=== PATIENT | female | born 1960 | race Caucasian/White ===

== ENCOUNTER 2016-09-05 14:58 | Emergency (ER) | payer BC ==
[2016-09-05] MEDS ORDERED: Sodium Chloride 0.9% 10 ML Syringe FLUSH PRN (15:03)
[2016-09-05] MEDS ORDERED: Sodium Chloride 0.9% 500 ML IV ONE (15:51)
--- NOTE | 2016-09-05 16:22 | EDM.PDOC ---
ED HISTORY OF PRESENT ILLNESS - General Chief Complaint: Chest Pain Stated Complaint: [facility] Time Seen by Provider: 09/05/16 15:03 Source of Information: Reports: Patient, EMS, RN notes reviewed - History of Present Illness INITIAL COMMENTS - FREE TEXT/NARRATIVE: 56-year-old female comes in with anterior chest discomfort. This started a couple of hours ago. The pain started upper mid abdomen with some radiation up into the chest. She did become very short of breath. She became weak lightheaded dizzy, felt like she was about to pass out. She also did feel a lot of palpitations and then did start having paresthesias of both hands. She was hyperventilating upon EMS arrival. He did give 1 mg Ativan IV in with that no symptoms are starting to relax somewhat. She still does have some anterior chest discomfort. She still does have some numbness of her hands. She feels less short of breath. She's not been ill recently. No recent cough fever or chills. No known personal cardiac history. - Related Data Allergies/ADRs: Allergies Allergy/AdvReac Type Severity Reaction Status Date / Time No Known Allergies Allergy Verified 09/05/16 15:01 Home Meds: Home Meds Omeprazole [Prilosec] 40 mg PO DAILY 06/14/14 [History] Sucralfate [Carafate] 1 gm PO ACBED #60 tab 06/14/14 [Rx] fluvoxaMINE 75 mg PO DAILY 06/14/14 [History] Past Medical History - Past Health History Medical/Surgical History: Denies Medical/Surgical History Other OB/BYN History: cyst removal Psychiatric History: Reports: Anxiety Social & Family History - Tobacco Use Smoking Status *Q: Never Smoker Second Hand Smoke Exposure: No - Alcohol Use Days Per Week of Alcohol Use: 1 Number of Drinks Per Day: 3 Total Drinks Per Week: 3 - Recreational Drug Use Recreational Drug Use: No ED ROS GENERAL - Review of Systems Review Of Systems: See Below Constitutional: Denies: fever, chills, diaphoresis HEENT: Denies: Sinus problem, Throat pain, Throat swelling Respiratory: Reports: Shortness of Breath. Denies: Wheezing, Pleuritic Chest Pain Cardiovascular: Reports: Chest pain GI/Abdominal: Reports: Abdominal pain (Upper mid abdomen). Denies: Nausea, Vomiting Musculoskeletal: Denies: neck pain, shoulder pain, arm pain Skin: Reports: no symptoms Neurological: Reports: Numbness (Bilateral hands) ED EXAM, GENERAL - Physical Exam Exam: See Below General Appearance: alert, anxious, moderate distress Throat/Mouth: Normal inspection, Normal oropharynx Head: atraumatic. No: facial swelling Neck: supple Respiratory/Chest: lungs clear, normal breath sounds, respiratory distress ( Mild tachypnea). No: rales, rhonchi, wheezing, stridor Cardiovascular: regular rate, rhythm GI/Abdominal: soft, tender (Very mild tenderness upper mid epigastrium). No: guarding, rebound Back Exam: No: CVA tenderness (L), CVA tenderness (R) Extremities: normal inspection, normal range of motion. No: pedal edema, leg pain Neurological: alert, oriented, no motor/sensory deficits Skin Exam: Warm, Dry, Normal color EKG INTERPRETATION EKG Date: 09/05/16 Rhythm: NSR [place]: normal P-wave: present QRS: normal ST-T: normal Course - Vital Signs Last Recorded V/S: Last Vital Signs Temp 97.2 F 09/05/16 15:01 Pulse 78 09/05/16 15:01 Resp 24 H 09/05/16 15:01 BP 93/71 09/05/16 15:01 Pulse Ox 95 09/05/16 15:01 - Orders/Labs/Meds Orders: Active Orders 24 hr Category Date Time Status EKG 12 Lead [EKG Documentation Completion] [RC] STAT Care 09/05/16 15:03 Active Peripheral IV Care [RC] . DIRECTED Care 09/05/16 15:04 Active Chest 1V Frontal [CR] Stat Exams 09/05/16 16:25 Taken Sodium Chloride 0.9% [Saline Flush] Med 09/05/16 15:03 Active 10 ml FLUSH ASDIRECTED PRN Peripheral IV Insertion Adult [OM.PC] Stat Oth 09/05/16 15:04 Ordered Medication Orders Sodium Chloride (Saline Flush) 10 ml FLUSH ASDIRECTED PRN PRN Reason: Keep Vein Open Last Admin: 09/05/16 15:32 Dose: 10 ml Labs: Laboratory Tests 09/05/16 09/05/16 Range/Units 15:15 15:15 WBC 8.15 (3.98-10.04) K/mm3 RBC 4.41 (3.98-5.22) M/mm3 Hgb 13.6 (11.2-15.7) gm/L Hct 40.3 (34.1-44.9) % MCV 91.4 (79.4-94.8) fl MCH 30.8 (25.6-32.2) pg MCHC 33.7 (32.2-35.5) g/dl RDW Std Deviation 39.5 (36.4-46.3) fL Plt Count 259 (182-369) K/mm3 MPV 10.2 (9.4-12.3) fl Neut % (Auto) 62.5 (34.0-71.1) % Lymph % (Auto) 27.4 (19.3-51.7) % [place] % (Auto) 7.1 (4.7-12.5) % Eos % (Auto) 2.7 (0.7-5.8) Baso % (Auto) 0.1 (0.1-1.2) % Neut # (Auto) 5.09 (1.56-6.13) K/mm3 Lymph # (Auto) 2.23 (1.18-3.74) K/mm3 [place] # (Auto) 0.58 H (0.24-0.36) K/mm3 Eos # (Auto) 0.22 (0.04-0.36) K/mm3 Baso # (Auto) 0.01 (0.01-0.08) K/mm3 Sodium 141 (136-145) mEq/L Potassium 3.1 L (3.5-5.1) mEq/L Chloride 106 (98-107) mEq/L Carbon Dioxide 24 (21-32) mEq/L Anion Gap 14.1 (5-15) BUN 16 (7-18) mg/dL Creatinine 1.0 (0.55-1.02) mg/dL Est Cr Clr Drug Dosing 55.85 mL/min Estimated GFR (MDRD) 57 (>60) mL/min BUN/Creatinine Ratio 16.0 (14-18) Glucose 124 H (74-106) mg/dL Calcium 8.8 (8.5-10.1) mg/dL Total Bilirubin 0.5 (0.2-1.0) mg/dL AST 29 (15-37) U/L ALT 38 (14-59) U/L Alkaline Phosphatase 88 (46-116) U/L Troponin I < 0.017 (0.00-0.056) ng/mL Total Protein 7.0 (6.4-8.2) g/dl Albumin 3.5 (3.4-5.0) g/dl Globulin 3.5 gm/dL Albumin/Globulin Ratio 1.0 (1-2) Meds: Medications Generic Name Dose Route Start Last Admin Trade Name Freq PRN Reason Stop Dose Admin Sodium Chloride 10 ml 09/05/16 15:03 09/05/16 15:32 Saline Flush FLUSH 10 ml ASDIRECTED PRN Administration Keep Vein Open Discontinued Medications Generic Name Dose Route Start Last Admin Trade Name Freq PRN Reason Stop Dose Admin Sodium Chloride 500 mls @ 999 mls/hr 09/05/16 15:51 09/05/16 16:02 Normal Saline IV 09/05/16 16:21 999 mls/hr .BOLUS ONE Administration - Re-Assessments/Exams Free Text/Narrative Re-Assessment/Exam: 09/05/16 17:02 EKG was normal, troponin has come back normal other labs as documented potassium mildly low at 3.1. This is been discussed with patient. Her chest discomfort is completely gone. Her chest x-ray looked good. Discharge instructions as documented 09/05/16 17:04 Departure - Departure Time of Disposition: 17:02 Disposition: Home, Self-Care 01 Condition: fair Clinical Impression: Atypical chest pain GERD (gastroesophageal reflux disease) Qualifiers: Esophagitis presence: esophagitis presence not specified Qualified Code(s): K21.9 - Gastro-esophageal reflux disease without esophagitis Forms: ED Department Discharge Additional Instructions: Clear liquids and very bland diet as tolerated, potassium did come back somewhat low at a level of 3.1. Eat plenty of fruits and vegetables. Bananas are a great source of potassium. Potatoes are also high in potassium. Followup clinic as needed, return to ED if symptoms worsening in any way - My Orders Last 24 Hours: My Active Orders 09/05/16 15:03 EKG 12 Lead [EKG Documentation Completion] [RC] STAT Sodium Chloride 0.9% [Saline Flush] 10 ml FLUSH ASDIRECTED PRN 09/05/16 15:04 Peripheral IV Care [RC] . DIRECTED Peripheral IV Insertion Adult [OM.PC] Stat 09/05/16 16:25 Chest 1V Frontal [CR] Stat - Assessment/Plan Last 24 Hours: My Active Orders 09/05/16 15:03 EKG 12 Lead [EKG Documentation Completion] [RC] STAT Sodium Chloride 0.9% [Saline Flush] 10 ml FLUSH ASDIRECTED PRN 09/05/16 15:04 Peripheral IV Care [RC] . DIRECTED Peripheral IV Insertion Adult [OM.PC] Stat 09/05/16 16:25 Chest 1V Frontal [CR] Stat
[2016-09-05 17:42] VITALS: BP 114/64
--- NOTE | 2016-09-06 09:51 | CR ---
Chest: Frontal view of the chest was obtained. Comparison: Previous chest x-ray of 06/13/14. Heart size and mediastinum are within normal limits. Lungs are clear. Bony structures are grossly intact. Impression: 1. Nothing acute is identified on frontal chest x-ray. Diagnostic code #1
== END 2016-09-05 17:25 | disposition home or self-care (01) ==
LOC: JD.ED 14:58
DX: K21.9 Gastro-esophageal reflux disease without esophagitis (principal); F41.9 Anxiety disorder, unspecified; Z79.899 Other long term (current) drug therapy
CPT/HCPCS: 36415; 71010; 80053; 84484; 85025; 93005; 96360; 99285; J7040; J7050; 99284

== ENCOUNTER 2016-09-05 22:42 | Emergency (ER) | payer BC ==
[2016-09-05] MEDS ORDERED: Sodium Chloride 0.9% 10 ML Syringe FLUSH PRN (23:29)
[2016-09-05] MEDS ORDERED: Ondansetron 4 MG/2 ML SDV IVPUSH ONE (23:29)
[2016-09-05] MEDS ORDERED: Sodium Chloride 0.9% 1,000 ML IV STA (23:29)
[2016-09-05] MEDS ORDERED: HYDROmorphone 1 MG/ML Syringe IVPUSH ONE (23:31)
--- NOTE | 2016-09-06 00:44 | EDM.PDOC ---
ED HPI GI/ABDOMINAL - General Chief Complaint: Abdominal Pain Stated Complaint: ABDOMAINAL PAIN BLOODY STOOL Time Seen by Provider: 09/05/16 23:14 Source of Information: Reports: Patient History Limitations: Reports: No limitations - History of Present Illness INITIAL COMMENTS - FREE TEXT/NARRATIVE: The patient presents with left lower abdominal pain. This started earlier today and it has increased through the day and now she has some blood in her stools. She was here earlier today for chest pain and anxiety. She thinks the pain started then and she was anxious about it but she did not tell the doctor earlier. She felt better and went home and every since the pain has increased and it is in the left lower quadrant. She has a history of diverticulitis when she was in her 30s. She has some nausea but no vomiting. She has no dysuria. Timing/Duration: Reports: Hour(s): (Earlier today) Location: [facility] Quality: Reports: stabbing Severity: moderate Context: Denies: sick contact, bad/questionable food, out of country travel, recent surgery Associated Symptoms (-Female): Reports: nausea/vomiting. Denies: constipation , diarrhea, fever/chills - Related Data Allergies/ADRs: Allergies Allergy/AdvReac Type Severity Reaction Status Date / Time No Known Allergies Allergy Verified 09/05/16 15:01 Home Meds: Home Meds Ciprofloxacin HCl [Cipro] 500 mg PO BID #14 tablet 09/06/16 [Rx] Hydrocodone/Acetaminophen [Hydrocodon-Acetaminophen 5-325] 1 - 2 each PO Q6HR PRN #20 tablet 09/06/16 [Rx] Ondansetron [Zofran ODT] 4 mg PO Q6H PRN #20 tab.dis 09/06/16 [Rx] metroNIDAZOLE [Flagyl] 500 mg PO Q8H #21 tablet 09/06/16 [Rx] Past Medical History - Past Health History Medical/Surgical History: Denies Medical/Surgical History Other OB/BYN History: cyst removal;uterus cauterized Psychiatric History: Reports: Anxiety - Past Surgical History GI Surgical History: Reports: Appendectomy, Cholecystectomy Female Surgical History: Reports: section Social & Family History - Tobacco Use Smoking Status *Q: Never Smoker Second Hand Smoke Exposure: No - Caffeine Use Caffeine Use: Reports: Tea - Alcohol Use Days Per Week of Alcohol Use: 1 Number of Drinks Per Day: 3 Total Drinks Per Week: 3 - Recreational Drug Use Recreational Drug Use: No ED ROS GENERAL - Review of Systems Review Of Systems: See Below Constitutional: Reports: no symptoms HEENT: Reports: No symptoms Respiratory: Reports: No Symptoms Cardiovascular: Reports: No symptoms Endocrine: Reports: no symptoms GI/Abdominal: Reports: Abdominal pain, Bloody stool, Nausea. Denies: Vomiting : Reports: no symptoms Musculoskeletal: Reports: no symptoms Skin: Reports: no symptoms ED EXAM, GI/ABD - Physical Exam Exam: See Below Exam Limited By: No limitations General Appearance: alert, no apparent distress Ears: normal external exam Nose: normal inspection Head: atraumatic, normocephalic Neck: normal inspection Respiratory/Chest: no respiratory distress, lungs clear, normal breath sounds Cardiovascular: regular rate, rhythm, no edema, no murmur GI/Abdominal: soft, no organomegaly, no mass, tenderness (Moderate pain upon palpation to the left lower abdomen) Back Exam: normal inspection Extremities: normal inspection Neurological: alert, oriented Skin Exam: Warm, Dry Course - Vital Signs Last Recorded V/S: Last Vital Signs Temp 97.9 F 09/05/16 22:55 Pulse 78 09/05/16 22:55 Resp 20 09/05/16 22:55 BP 135/88 09/05/16 22:55 Pulse Ox 97 09/05/16 22:55 - Orders/Labs/Meds Orders: Active Orders 24 hr Category Date Time Status Peripheral IV Care [RC] . DIRECTED Care 09/05/16 23:29 Active Abdomen Pelvis w Cont [CT] Stat Exams 09/05/16 23:29 Taken UA W/MICROSCOPIC [URIN] Stat Lab 09/06/16 01:50 Results Sodium Chloride 0.9% [Saline Flush] Med 09/05/16 23:29 Active 10 ml FLUSH ASDIRECTED PRN ED Antiemetic Medication Reflex [OM.PC] Stat Oth 09/05/16 23:29 Ordered Peripheral IV Insertion Adult [OM.PC] Stat Oth 09/05/16 23:29 Ordered Medication Orders Sodium Chloride (Saline Flush) 10 ml FLUSH ASDIRECTED PRN PRN Reason: Keep Vein Open Last Admin: 09/06/16 00:04 Dose: 10 ml Labs: Laboratory Tests 09/05/16 09/05/16 09/06/16 Range/Units 23:50 23:50 01:50 WBC 17.20 H (3.98-10.04) K/mm3 RBC 4.47 (3.98-5.22) M/mm3 Hgb 13.8 (11.2-15.7) gm/L Hct 40.8 (34.1-44.9) % MCV 91.3 (79.4-94.8) fl MCH 30.9 (25.6-32.2) pg MCHC 33.8 (32.2-35.5) g/dl RDW Std Deviation 39.7 (36.4-46.3) fL Plt Count 225 (182-369) K/mm3 MPV 10.5 (9.4-12.3) fl Neut % (Auto) 82.1 H (34.0-71.1) % Lymph % (Auto) 9.8 L (19.3-51.7) % [place] % (Auto) 6.6 (4.7-12.5) % Eos % (Auto) 1.2 (0.7-5.8) Baso % (Auto) 0.1 (0.1-1.2) % Neut # (Auto) 14.12 H (1.56-6.13) K/mm3 Lymph # (Auto) 1.68 (1.18-3.74) K/mm3 [place] # (Auto) 1.14 H (0.24-0.36) K/mm3 Eos # (Auto) 0.21 (0.04-0.36) K/mm3 Baso # (Auto) 0.01 (0.01-0.08) K/mm3 Manual Slide Review Abnormal smear Sodium 143 (136-145) mEq/L Potassium 3.6 (3.5-5.1) mEq/L Chloride 108 H (98-107) mEq/L Carbon Dioxide 26 (21-32) mEq/L Anion Gap 12.6 (5-15) BUN 14 (7-18) mg/dL Creatinine 1.0 (0.55-1.02) mg/dL Est Cr Clr Drug Dosing 58.11 mL/min Estimated GFR (MDRD) 57 (>60) mL/min BUN/Creatinine Ratio 14.0 (14-18) Glucose 108 H (74-106) mg/dL Calcium 9.1 (8.5-10.1) mg/dL Total Bilirubin 0.4 (0.2-1.0) mg/dL AST 28 (15-37) U/L ALT 42 (14-59) U/L Alkaline Phosphatase 95 (46-116) U/L Total Protein 7.1 (6.4-8.2) g/dl Albumin 3.6 (3.4-5.0) g/dl Globulin 3.5 gm/dL Albumin/Globulin Ratio 1.0 (1-2) Lipase 192 (73-393) U/L Urine Color Yellow (Yellow) Urine Appearance Clear (Clear) Urine pH 6.0 (5.0-8.0) Ur Specific [place] 1.010 (1.005-1.030) Urine Protein Negative (Negative) Urine Glucose (UA) Negative (Negative) Urine Ketones Negative (Negative) Urine Occult Blood Negative (Negative) Urine Nitrite Negative (Negative) Urine Bilirubin Negative (Negative) Urine Urobilinogen 0.2 (0.2-1.0) Ur Leukocyte Esterase Negative (Negative) Meds: Medications Generic Name Dose Route Start Last Admin Trade Name Fredixie PRN Reason Stop Dose Admin Sodium Chloride 10 ml 09/05/16 23:29 09/06/16 00:04 Saline Flush FLUSH 10 ml ASDIRECTED PRN Administration Keep Vein Open Discontinued Medications Generic Name Dose Route Start Last Admin Trade Name Sharlene PRN Reason Stop Dose Admin Hydromorphone HCl 1 mg 09/05/16 23:31 09/05/16 23:59 Dilaudid IVPUSH 09/05/16 23:32 1 mg ONETIME ONE Administration Sodium Chloride 1,000 mls @ 1,000 mls/hr 09/05/16 23:29 09/05/16 23:56 Normal Saline IV 09/06/16 00:28 1,000 mls/hr .BOLUS STA Administration Levofloxacin 500 mg 09/06/16 02:15 Levaquin PO 09/06/16 02:16 ONETIME ONE Metronidazole 500 mg 09/06/16 02:14 Flagyl PO 09/06/16 02:15 ONETIME ONE Ondansetron HCl 4 mg 09/05/16 23:29 09/05/16 23:57 Zofran IVPUSH 09/05/16 23:30 4 mg ONETIME ONE Administration - Re-Assessments/Exams Free Text/Narrative Re-Assessment/Exam: 09/06/16 00:49 I ordered an IV NS 1L bolus, zofran 4mg IV, dilaudid 1mg IV, labs, UA and a CT of her abdomen and pelvis. 09/06/16 02:19 Her WBC is elevated at 17.2. There was no elevation this afternoon. Her CMP and lipase were negative. Her UA shows no UTI. Her CT shows fairly diffuse colitis involving the left side of the colon. Most likely this is infectious or inflammatory bowel disease. She has no history of inflammatory bowel disease. I feel this is infectious. I will give her a dose of flagyl and levaquin and give her a prescription for more flagyl and cipro at home. I will also get her on some zofran and hydrocodone for pain. Departure - Departure Time of Disposition: 02:25 Disposition: Home, Self-Care 01 Condition: good Clinical Impression: Colitis Prescriptions: Hydrocodone/Acetaminophen [Hydrocodon-Acetaminophen 5-325] 1 - 2 each PO Q6HR PRN #20 tablet PRN Reason: Pain Ciprofloxacin HCl [Cipro] 500 mg PO BID #14 tablet Ondansetron [Zofran ODT] 4 mg PO Q6H PRN #20 tab.dis PRN Reason: Nausea/Vomiting metroNIDAZOLE [Flagyl] 500 mg PO Q8H #21 tablet Referrals: Diandra Pitts [Physician] - 1 Week Forms: ED Department Discharge Additional Instructions: Take the cipro 2 times per day and the flagyl 3 times per day. Take the zofran as needed for nausea. Take the hydrocodone as needed for pain. Please return if you are worse such as more pain, nausea, vomiting, and more bloody stool. Follow up with Dr Pitts in our clinic. After this infection goes away you may need a colonosopy. - My Orders Last 24 Hours: My Active Orders 09/05/16 23:29 Peripheral IV Care [RC] . DIRECTED Abdomen Pelvis w Cont [CT] Stat Sodium Chloride 0.9% [Saline Flush] 10 ml FLUSH ASDIRECTED PRN ED Antiemetic Medication Reflex [OM.PC] Stat Peripheral IV Insertion Adult [OM.PC] Stat 09/06/16 01:50 UA W/MICROSCOPIC [URIN] Stat - Assessment/Plan Last 24 Hours: My Active Orders 09/05/16 23:29 Peripheral IV Care [RC] . DIRECTED Abdomen Pelvis w Cont [CT] Stat Sodium Chloride 0.9% [Saline Flush] 10 ml FLUSH ASDIRECTED PRN ED Antiemetic Medication Reflex [OM.PC] Stat Peripheral IV Insertion Adult [OM.PC] Stat 09/06/16 01:50 UA W/MICROSCOPIC [URIN] Stat
[2016-09-06] MEDS ORDERED: metroNIDAZOLE 500 MG Tab PO ONE (02:14)
[2016-09-06] MEDS ORDERED: Levofloxacin 500 MG Tab PO ONE (02:15)
[2016-09-06 02:40] VITALS: BP 120/74
--- NOTE | 2016-09-06 09:51 | CT ---
CT abdomen and pelvis Technique: Multiple axial sections were obtained from above the dome of the diaphragm inferiorly to the pubic symphysis. Intravenous and oral contrast was utilized. Delayed images were also obtained through the bladder. Comparison: No previous abdominal imaging. Findings: Contrast seen within the distal esophagus compatible with reflux. Visualized lung bases show nothing acute. Liver shows no focal parenchymal abnormality. Surgical clips seen from prior cholecystectomy. Spleen appears within normal limits. Adrenal glands show no nodule. Pancreas is within normal limits. Kidneys show symmetric contrast enhancement without hydronephrosis or mass. Aorta shows no aneurysmal dilatation. No retroperitoneal adenopathy or mesenteric abnormalities are seen. No pelvic mass or adenopathy is seen. Appendix not visualized. Diffuse bowel wall thickening seen within the descending colon. Several diverticuli seen within the sigmoid colon without inflammatory change. No bowel dilatation is seen. Delayed images show contrast within the distal ureters and within the bladder. Bone window settings were reviewed which appear within normal limits for the patient's age. Impression: 1. Bowel wall thickening within the descending colon. Findings compatible with nonspecific colitis with differential including infection and inflammatory bowel disease. 2. Other incidental findings as noted above. Agree with preliminary report issued by [employer] (preliminary report dictated on 09/06/16, 2:50 AM Central Time) Diagnostic code #3
== END 2016-09-06 02:30 | disposition home or self-care (01) ==
LOC: JD.ED 22:42
DX: K52.9 Noninfective gastroenteritis and colitis, unspecified (principal); K21.9 Gastro-esophageal reflux disease without esophagitis; F41.9 Anxiety disorder, unspecified; Z90.49 Acquired absence of other specified parts of digestive tract; Z98.890 Other specified postprocedural states; Z79.899 Other long term (current) drug therapy
CPT/HCPCS: 36415; 71010; 74177; 80053; 81001; 83690; 84484; 85025; 93005; 96360; 96361; 96374; 96375; 99284; 99285; A9270; J1170; J2405; J7040; J7050